=== PATIENT | female | born 1980 | race Caucasian/White ===

== ENCOUNTER 2021-08-27 08:57 | Inpatient (IN) ==
[2021-08-27] MEDS ORDERED: Ipratropium/Albuterol Neb 3 ML IH ONE (09:17)
[2021-08-27] MEDS ORDERED: 0.9 % Sodium Chloride 1,000 ML IVC ONE (09:17)
[2021-08-27 09:49] LABS: Basophils % 0.1 %; Hemoglobin 11.6 g/dL (11.5-15.4); Immature Granulocytes % 0.3 % (0-4); Mean Corpuscular Hemoglobin 27.8 pg (28.0-33.3); Red Blood Count 4.17 M/mcL (3.82-4.97)
[2021-08-27 09:51] LABS: Hematocrit 35.8 % (35.3-44.9); Immature Platelets 22.8 % (1.1-6.1); Lymphocytes # 0.8 K/mcL (0.6-4.6); Mean Corpuscular HGB Conc 32.4 g/dL (31.6-35.5); Mean Corpuscular Volume 85.9 fL (83.0-100.0); Mean Platelet Volume 13.2 fL (9.4-12.4); Monocytes # 0.4 K/mcL (0.0-1.3); Monocytes % 4.4 %; Neutrophils # 7.4 K/mcL (1.6-8.9); Platelet Count 101 K/mcL (140-400); Red Cell Distribution Width 14.4 % (11.5-14.5); Segmented Neutrophils % 86.2 %; White Blood Count 8.6 K/mcL (4.3-11.1)
[2021-08-27 10:10] LABS: ABG Base Excess 1 mEq/L (-2 to 3); ABG HCO3 25 mEq/L (21-27); ABG Oxygen Saturation 94 % (95-98); ABG PCO2 38 mmHg (35-45); ABG PH 7.43 pH Units (7.32-7.45); ABG PO2 70 mmHg (85-104); ABG TCO2 26 mEq/L (20-26)
[2021-08-27] MEDS ORDERED: Isovue-370 500 ML BOTTLE IVP ONE (10:14)
[2021-08-27 10:18] LABS: BUN/Creatinine Ratio 31 (6-26); Blood Urea Nitrogen 36 mg/dL (6-20); Calcium 8.9 mg/dL (8.6-10.3); Carbon Dioxide 26 mEq/L (23-29); Chloride 96 mEq/L (98-107); Glucose 182 mg/dL (70-105); Osmolality,Calculated 289 (280-300); Potassium 3.7 mEq/L (3.5-5.1); Sodium 133 mEq/L (136-145); Troponin I 0.07 ng/mL (< 0.04); eGFR For African Americans > 60 (> 60); eGFR For Non-African Americans 52 (> 60)
[2021-08-27] MEDS ORDERED: Ketorolac 15 MG/ML VIAL IVP ONE (10:42)
[2021-08-27] MEDS ORDERED: Naloxone 0.4 MG/ML INJ IVP PRN (11:39)
[2021-08-27] MEDS ORDERED: Azithromycin 500 MG in 0.9 % Sodium Chloride 250 ML IVPB SCH (12:00)
[2021-08-27 12:03] LABS: Alanine Aminotransferase 35 Units/L (7-52); Albumin 3.7 g/dL (3.5-5.7); Albumin/Globulin Ratio 1.1 (1.1-2.2); Alkaline Phosphatase 156 Units/L (34-104); Aspartate Amino Transferase 87 Units/L (13-39); Bilirubin,Direct 0.1 mg/dL (0.0-0.2); Bilirubin,Indirect 0.2 mg/dL (0.0-1.0); Bilirubin,Total 0.3 mg/dL (0.3-1.0); Globulin 3.5 g/dL (2.4-3.5); Total Protein 7.2 g/dL (6.4-8.9)
[2021-08-27] MEDS ORDERED: Remdesivir 200 MG in 0.9 % Sodium Chloride 100 ML IVPB ONE (15:00)
[2021-08-27 17:11] LABS: C-Reactive Protein > 300 mg/L (Less than 10)
[2021-08-27 17:49] LABS: Ferritin > 1500 ng/mL (10-120)
[2021-08-27] MEDS: atenoloL 25 MG TABLET PO SCH (19:53)
[2021-08-27] MEDS ORDERED: *HR* LORazepam 2 MG/ML VIAL IVP ONE (21:25)
[2021-08-28 02:07] LABS: Immature Granulocytes % 0.9 % (0-4); Lymphocytes % 14.8 %; Red Cell Distribution Width 14.4 % (11.5-14.5)
[2021-08-28 02:09] LABS: Basophils % 0.2 %; Hemoglobin 11.3 g/dL (11.5-15.4); Immature Platelets 19.4 % (1.1-6.1); Lymphocytes # 1.4 K/mcL (0.6-4.6); Mean Corpuscular HGB Conc 33.2 g/dL (31.6-35.5); Mean Corpuscular Hemoglobin 28.3 pg (28.0-33.3); Mean Platelet Volume 13.4 fL (9.4-12.4); Monocytes # 0.4 K/mcL (0.0-1.3); Monocytes % 4.2 %; Neutrophils # 7.4 K/mcL (1.6-8.9); Platelet Count 117 K/mcL (140-400); Segmented Neutrophils % 79.9 %; White Blood Count 9.3 K/mcL (4.3-11.1)
[2021-08-28 02:21] LABS: BUN/Creatinine Ratio 41 (6-26); Blood Urea Nitrogen 32 mg/dL (6-20); Calcium 8.6 mg/dL (8.6-10.3); Carbon Dioxide 22 mEq/L (23-29); Chloride 100 mEq/L (98-107); Glucose 185 mg/dL (70-105); Magnesium 2.1 mg/dL (1.6-2.6); Osmolality,Calculated 288 (280-300); Phosphorous 2.2 mg/dL (2.7-4.5); Potassium 3.7 mEq/L (3.5-5.1); Sodium 133 mEq/L (136-145); eGFR For African Americans > 60 (> 60); eGFR For Non-African Americans > 60 (> 60)
[2021-08-28 02:22] LABS: Albumin 3.4 g/dL (3.5-5.7); Bilirubin,Direct 0.1 mg/dL (0.0-0.2); Bilirubin,Indirect 0.2 mg/dL (0.0-1.0); Bilirubin,Total 0.3 mg/dL (0.3-1.0); Globulin 3.3 g/dL (2.4-3.5); Total Protein 6.7 g/dL (6.4-8.9)
[2021-08-28] MEDS ORDERED: *HR* Enoxaparin 40 MG/0.4 ML SYRINGE SQ SCH (06:00)
[2021-08-28] MEDS: *HR* OxyCODONE/APAP 5/325 TABLET PO PRN ×3 (08:55→23:57)
[2021-08-28] MEDS: atenoloL 25 MG TABLET PO SCH (08:55)
[2021-08-28] MEDS: Furosemide 20 MG/2 ML VIAL IVP SCH ×2 (08:56→20:14)
[2021-08-28] MEDS: Remdesivir 100 MG in 0.9 % Sodium Chloride 100 ML IVPB SCH (14:55)
[2021-08-28] MEDS: Ondansetron 4 MG/2 ML VIAL IVP PRN (16:20)
[2021-08-28] MEDS: *HR* Enoxaparin 40 MG/0.4 ML SYRINGE SQ SCH (16:29)
[2021-08-29 02:52] LABS: Red Cell Distribution Width 14.4 % (11.5-14.5)
[2021-08-29 02:54] LABS: Hematocrit 34.6 % (35.3-44.9); Hemoglobin 11.1 g/dL (11.5-15.4); Immature Platelets 21.2 % (1.1-6.1); Mean Corpuscular HGB Conc 32.1 g/dL (31.6-35.5); Mean Corpuscular Hemoglobin 27.6 pg (28.0-33.3); Mean Corpuscular Volume 86.1 fL (83.0-100.0); Mean Platelet Volume 13.6 fL (9.4-12.4); Red Blood Count 4.02 M/mcL (3.82-4.97); White Blood Count 12.2 K/mcL (4.3-11.1)
[2021-08-29 03:12] LABS: BUN/Creatinine Ratio 42 (6-26); Blood Urea Nitrogen 41 mg/dL (6-20); Calcium 8.4 mg/dL (8.6-10.3); Carbon Dioxide 23 mEq/L (23-29); Chloride 99 mEq/L (98-107); Glucose 215 mg/dL (70-105); Osmolality,Calculated 295 (280-300); Potassium 3.7 mEq/L (3.5-5.1); Sodium 134 mEq/L (136-145); eGFR For African Americans > 60 (> 60); eGFR For Non-African Americans > 60 (> 60)
[2021-08-29 03:13] LABS: Albumin 3.4 g/dL (3.5-5.7); Albumin/Globulin Ratio 1.1 (1.1-2.2); Bilirubin,Direct 0.1 mg/dL (0.0-0.2); Bilirubin,Indirect 0.3 mg/dL (0.0-1.0); Bilirubin,Total 0.4 mg/dL (0.3-1.0); Globulin 3.2 g/dL (2.4-3.5); Total Protein 6.6 g/dL (6.4-8.9)
[2021-08-29] MEDS: *HR* Enoxaparin 40 MG/0.4 ML SYRINGE SQ SCH ×2 (05:35→17:48)
[2021-08-29] MEDS: Cholecalciferol (D-3) 1,000 UNIT (25MCG) TABLET PO SCH (08:31)
[2021-08-29] MEDS: *HR* OxyCODONE/APAP 5/325 TABLET PO PRN ×3 (08:31→22:22)
[2021-08-29] MEDS: Furosemide 20 MG/2 ML VIAL IVP SCH ×2 (08:31→20:47)
[2021-08-29] MEDS ORDERED: atenoloL 25 MG TABLET PO SCH (09:00)
[2021-08-29] MEDS: Remdesivir 100 MG in 0.9 % Sodium Chloride 100 ML IVPB SCH (15:38)
[2021-08-29] MEDS ORDERED: *HR* LORazepam 2 MG/ML VIAL IVP ONE (19:58)
[2021-08-29] MEDS: Ondansetron 4 MG/2 ML VIAL IVP PRN (22:22)
[2021-08-30 02:42] LABS: Albumin 3.5 g/dL (3.5-5.7); Albumin/Globulin Ratio 1.2 (1.1-2.2); BUN/Creatinine Ratio 50 (6-26); Bilirubin,Direct 0.2 mg/dL (0.0-0.2); Bilirubin,Indirect 0.3 mg/dL (0.0-1.0); Bilirubin,Total 0.5 mg/dL (0.3-1.0); Blood Urea Nitrogen 55 mg/dL (6-20); Calcium 8.5 mg/dL (8.6-10.3); Carbon Dioxide 24 mEq/L (23-29); Chloride 97 mEq/L (98-107); Globulin 2.9 g/dL (2.4-3.5); Glucose 242 mg/dL (70-105); Osmolality,Calculated 299 (280-300); Potassium 3.7 mEq/L (3.5-5.1); Sodium 133 mEq/L (136-145); Total Protein 6.4 g/dL (6.4-8.9); eGFR For African Americans > 60 (> 60); eGFR For Non-African Americans 54 (> 60)
[2021-08-30 03:42] LABS: Hematocrit 33.5 % (35.3-44.9); Hemoglobin 11.2 g/dL (11.5-15.4); Mean Corpuscular HGB Conc 33.4 g/dL (31.6-35.5); Mean Corpuscular Hemoglobin 28.6 pg (28.0-33.3); Mean Corpuscular Volume 85.5 fL (83.0-100.0); Mean Platelet Volume 13.5 fL (9.4-12.4); Platelet Count 190 K/mcL (140-400); Red Blood Count 3.92 M/mcL (3.82-4.97); Red Cell Distribution Width 14.1 % (11.5-14.5); White Blood Count 14.6 K/mcL (4.3-11.1)
[2021-08-30] MEDS ORDERED: *HR* LORazepam 2 MG/ML VIAL IVP ONE (04:42)
[2021-08-30] MEDS: *HR* OxyCODONE/APAP 5/325 TABLET PO PRN ×3 (04:51→21:30)
[2021-08-30] MEDS: *HR* Enoxaparin 40 MG/0.4 ML SYRINGE SQ SCH ×2 (04:52→17:05)
[2021-08-30] MEDS: Ondansetron 4 MG/2 ML VIAL IVP PRN ×2 (07:52→17:05)
[2021-08-30] MEDS: Cholecalciferol (D-3) 1,000 UNIT (25MCG) TABLET PO SCH (07:52)
[2021-08-30] MEDS: Furosemide 20 MG/2 ML VIAL IVP SCH ×2 (07:52→21:30)
[2021-08-30] MEDS: Remdesivir 100 MG in 0.9 % Sodium Chloride 100 ML IVPB SCH (15:39)
[2021-08-31 03:01] LABS: Albumin 3.4 g/dL (3.5-5.7); Albumin/Globulin Ratio 1.1 (1.1-2.2); Bilirubin,Direct 0.1 mg/dL (0.0-0.2); Bilirubin,Indirect 0.6 mg/dL (0.0-1.0); Bilirubin,Total 0.7 mg/dL (0.3-1.0); Total Protein 6.4 g/dL (6.4-8.9)
[2021-08-31] MEDS: *HR* Enoxaparin 40 MG/0.4 ML SYRINGE SQ SCH ×2 (05:44→16:17)
[2021-08-31] MEDS: Cholecalciferol (D-3) 1,000 UNIT (25MCG) TABLET PO SCH (08:50)
[2021-08-31] MEDS: Furosemide 20 MG/2 ML VIAL IVP SCH ×2 (08:51→20:48)
[2021-08-31] MEDS: *HR* OxyCODONE/APAP 5/325 TABLET PO PRN ×3 (09:01→23:40)
[2021-08-31 09:24] LABS: BUN/Creatinine Ratio 49 (6-26); Blood Urea Nitrogen 57 mg/dL (6-20); Calcium 8.8 mg/dL (8.6-10.3); Carbon Dioxide 26 mEq/L (23-29); Chloride 96 mEq/L (98-107); Glucose 268 mg/dL (70-105); Osmolality,Calculated 303 (280-300); Potassium 3.9 mEq/L (3.5-5.1); Sodium 134 mEq/L (136-145); eGFR For African Americans > 60 (> 60); eGFR For Non-African Americans 51 (> 60)
[2021-08-31] MEDS: Remdesivir 100 MG in 0.9 % Sodium Chloride 100 ML IVPB SCH (15:13)
[2021-09-01 02:40] LABS: BUN/Creatinine Ratio 48 (6-26); Blood Urea Nitrogen 54 mg/dL (6-20); Calcium 8.7 mg/dL (8.6-10.3); Carbon Dioxide 26 mEq/L (23-29); Chloride 95 mEq/L (98-107); Glucose 315 mg/dL (70-105); Osmolality,Calculated 299 (280-300); Potassium 4.2 mEq/L (3.5-5.1); Sodium 131 mEq/L (136-145); eGFR For African Americans > 60 (> 60); eGFR For Non-African Americans 53 (> 60)
[2021-09-01 02:41] LABS: Albumin 3.3 g/dL (3.5-5.7); Albumin/Globulin Ratio 1.1 (1.1-2.2); Bilirubin,Direct 0.1 mg/dL (0.0-0.2); Bilirubin,Indirect 0.5 mg/dL (0.0-1.0); Bilirubin,Total 0.6 mg/dL (0.3-1.0); Total Protein 6.3 g/dL (6.4-8.9)
[2021-09-01 03:05] LABS: Hematocrit 36.2 % (35.3-44.9); Hemoglobin 11.8 g/dL (11.5-15.4); Mean Corpuscular HGB Conc 32.6 g/dL (31.6-35.5); Mean Corpuscular Hemoglobin 27.6 pg (28.0-33.3); Mean Corpuscular Volume 84.8 fL (83.0-100.0); Mean Platelet Volume 13.1 fL (9.4-12.4); Red Blood Count 4.27 M/mcL (3.82-4.97); Red Cell Distribution Width 13.3 % (11.5-14.5); White Blood Count 21.9 K/mcL (4.3-11.1)
[2021-09-01] MEDS: *HR* OxyCODONE/APAP 5/325 TABLET PO PRN (05:42)
[2021-09-01] MEDS: *HR* Enoxaparin 40 MG/0.4 ML SYRINGE SQ SCH ×2 (05:43→17:07)
[2021-09-01] MEDS: Ondansetron 4 MG/2 ML VIAL IVP PRN ×2 (06:30→18:21)
[2021-09-01] MEDS: Cholecalciferol (D-3) 1,000 UNIT (25MCG) TABLET PO SCH (08:25)
[2021-09-01] MEDS: Furosemide 20 MG/2 ML VIAL IVP SCH ×2 (08:25→21:15)
[2021-09-01] MEDS ORDERED: Morphine Sulfate 2 MG/ML SYRINGE IVP ONE (08:38)
[2021-09-01] MEDS: Morphine Sulfate 2 MG/ML SYRINGE IVP PRN ×3 (12:41→22:58)
[2021-09-01] MEDS ORDERED: *HR* LORazepam 2 MG/ML VIAL ONE (21:17)
[2021-09-01] MEDS: *HR* LORazepam 2 MG/ML VIAL IVP ONE ×2 (21:20→21:24)
[2021-09-02] MEDS: Morphine Sulfate 2 MG/ML SYRINGE IVP PRN ×4 (04:17→20:52)
[2021-09-02] MEDS: *HR* Enoxaparin 40 MG/0.4 ML SYRINGE SQ SCH ×2 (04:17→17:22)
[2021-09-02] MEDS: Cholecalciferol (D-3) 1,000 UNIT (25MCG) TABLET PO SCH (08:54)
[2021-09-02] MEDS: Ondansetron 4 MG/2 ML VIAL IVP PRN (08:54)
[2021-09-02] MEDS: Furosemide 20 MG/2 ML VIAL IVP SCH (08:55)
[2021-09-02 09:35] LABS: Red Cell Distribution Width 13.2 % (11.5-14.5)
[2021-09-02 09:37] LABS: Hematocrit 38.1 % (35.3-44.9); Hemoglobin 12.6 g/dL (11.5-15.4); Mean Corpuscular HGB Conc 33.1 g/dL (31.6-35.5); Mean Corpuscular Hemoglobin 27.8 pg (28.0-33.3); Mean Corpuscular Volume 83.9 fL (83.0-100.0); Mean Platelet Volume 12.4 fL (9.4-12.4); Platelet Count 160 K/mcL (140-400); Red Blood Count 4.54 M/mcL (3.82-4.97)
[2021-09-02 10:21] LABS: BUN/Creatinine Ratio 52 (6-26); Blood Urea Nitrogen 56 mg/dL (6-20); Calcium 8.9 mg/dL (8.6-10.3); Carbon Dioxide 24 mEq/L (23-29); Chloride 90 mEq/L (98-107); Glucose 297 mg/dL (70-105); Osmolality,Calculated 291 (280-300); Potassium 4.2 mEq/L (3.5-5.1); Sodium 127 mEq/L (136-145); eGFR For African Americans > 60 (> 60); eGFR For Non-African Americans 56 (> 60)
[2021-09-02] MEDS ORDERED: D5% in Water 1,000 ML IVC PRN (12:29)
[2021-09-02] MEDS ORDERED: Dextrose Gel 15 GM/37.5 ML TUBE PO PRN ×2 (12:29)
[2021-09-02] MEDS ORDERED: *HR* Dextrose 50 % in Water (Syg) 50 ML SYRINGE IVP PRN (12:29)
[2021-09-02] MEDS ORDERED: Insulin DETEMIR 100 UNIT/ML X5UNITS SUBQ SCH (12:30)
[2021-09-02] MEDS: Insulin LISPRO 300 UNITS/3 ML VIAL SUBQ SCH ×3 (13:15→20:53)
[2021-09-02] MEDS: Piperacillin/Tazobactam 3.375 GM in 0.9 % Sodium Chloride Mini Bag 100 ML IVPB SCH ×2 (15:49→23:40)
[2021-09-02] MEDS: Doxycycline 100 MG in 0.9 % Sodium Chloride Mini Bag 100 ML IVPB SCH (15:49)
[2021-09-02] MEDS ORDERED: Insulin LISPRO 300 UNITS/3 ML VIAL SUBQ ONE (16:20)
[2021-09-02] MEDS ORDERED: Ringers Solution, Lactated 500 ML IVC ONE ×3 (17:17→17:45)
[2021-09-02] MEDS ORDERED: Ringers Solution, Lactated 1,000 ML ONE (17:25)
[2021-09-02] MEDS: Insulin DETEMIR 100 UNIT/ML X5UNITS SUBQ SCH (20:56)
[2021-09-03] MEDS: Morphine Sulfate 2 MG/ML SYRINGE IVP PRN ×5 (02:01→22:16)
[2021-09-03] MEDS: Doxycycline 100 MG in 0.9 % Sodium Chloride Mini Bag 100 ML IVPB SCH ×2 (02:02→15:19)
[2021-09-03 03:02] LABS: Red Cell Distribution Width 13.2 % (11.5-14.5)
[2021-09-03 03:03] LABS: Hematocrit 34.9 % (35.3-44.9); Hemoglobin 12.1 g/dL (11.5-15.4); Mean Corpuscular HGB Conc 34.7 g/dL (31.6-35.5); Mean Corpuscular Volume 83.7 fL (83.0-100.0); Platelet Count 138 K/mcL (140-400); Red Blood Count 4.17 M/mcL (3.82-4.97)
[2021-09-03 03:10] LABS: White Blood Count 33.7 K/mcL (4.3-11.1)
[2021-09-03 03:26] LABS: BUN/Creatinine Ratio 48 (6-26); Blood Urea Nitrogen 45 mg/dL (6-20); Calcium 8.9 mg/dL (8.6-10.3); Carbon Dioxide 27 mEq/L (23-29); Chloride 93 mEq/L (98-107); Glucose 185 mg/dL (70-105); Osmolality,Calculated 284 (280-300); Sodium 129 mEq/L (136-145); eGFR For African Americans > 60 (> 60); eGFR For Non-African Americans > 60 (> 60)
[2021-09-03 06:07] LABS: Acinetobacter baumannii by PCR Not Detected (Not Detect); Candida albicans by PCR Not Detected (Not Detect); Candida glabrata by PCR Not Detected (Not Detect); Candida krusei by PCR Not Detected (Not Detect); Candida parapsilosis by PCR Not Detected (Not Detect); Candida tropicalis by PCR Not Detected (Not Detect); Enterobacter cloacae Cmplx PCR Not Detected (Not Detect); Enterobacteriaceae by PCR Not Detected (Not Detect); Enterococcus by PCR Not Detected (Not Detect); Escherichia coli by PCR Not Detected (Not Detect); Klebsiella oxytoca by PCR Not Detected (Not Detect); Klebsiella pneumoniae by PCR Not Detected (Not Detect); Proteus by PCR Not Detected (Not Detect); Pseudomonas aeruginosa by PCR Not Detected (Not Detect); Serratia marcescens by PCR Not Detected (Not Detect); Staphylococcus aureus by PCR Not Detected (Not Detect); Staphylococcus by PCR Not Detected (Not Detect); Streptococcus agalactiae(B)PCR Not Detected (Not Detect); Streptococcus pneumoniae PCR DETECTED (Not Detect); Streptococcus pyogenes (A) PCR Not Detected (Not Detect); mecA Methicillin-Resist Gene Not Detected (Not Detect); vanA/B Vancomycin-Resist Genes Not Detected (Not Detect)
[2021-09-03] MEDS: *HR* Enoxaparin 40 MG/0.4 ML SYRINGE SQ SCH ×2 (06:11→17:05)
[2021-09-03] MEDS: Cholecalciferol (D-3) 1,000 UNIT (25MCG) TABLET PO SCH (07:58)
[2021-09-03] MEDS: Piperacillin/Tazobactam 3.375 GM in 0.9 % Sodium Chloride Mini Bag 100 ML IVPB SCH ×2 (08:01→15:20)
[2021-09-03] MEDS: Insulin LISPRO 300 UNITS/3 ML VIAL SUBQ SCH ×4 (08:05→22:46)
[2021-09-03] MEDS: Insulin DETEMIR 100 UNIT/ML X5UNITS SUBQ SCH ×2 (10:54→22:20)
[2021-09-04] MEDS: Piperacillin/Tazobactam 3.375 GM in 0.9 % Sodium Chloride Mini Bag 100 ML IVPB SCH ×2 (00:40→07:31)
[2021-09-04] MEDS: Doxycycline 100 MG in 0.9 % Sodium Chloride Mini Bag 100 ML IVPB SCH (03:15)
[2021-09-04 03:18] LABS: Basophils # 0.1 K/mcL (0.0-0.2); Basophils % 0.3 %; Eosinophils # 0.1 K/mcL (0.0-0.6); Eosinophils % 0.4 %; Hemoglobin 11.3 g/dL (11.5-15.4); Immature Granulocytes % 2.5 % (0-4); Lymphocytes # 1.4 K/mcL (0.6-4.6); Lymphocytes % 5.5 %; Mean Corpuscular HGB Conc 33.2 g/dL (31.6-35.5); Mean Corpuscular Hemoglobin 28.1 pg (28.0-33.3); Mean Corpuscular Volume 84.6 fL (83.0-100.0); Mean Platelet Volume 12.8 fL (9.4-12.4); Monocytes # 0.7 K/mcL (0.0-1.3); Monocytes % 2.7 %; Neutrophils # 22.1 K/mcL (1.6-8.9); Platelet Count 125 K/mcL (140-400); Red Blood Count 4.02 M/mcL (3.82-4.97); Red Cell Distribution Width 13.2 % (11.5-14.5); Segmented Neutrophils % 88.6 %; White Blood Count 24.9 K/mcL (4.3-11.1)
[2021-09-04 03:34] LABS: BUN/Creatinine Ratio 47 (6-26); Blood Urea Nitrogen 34 mg/dL (6-20); C-Reactive Protein 16 mg/L (Less than 10); Calcium 8.7 mg/dL (8.6-10.3); Carbon Dioxide 28 mEq/L (23-29); Chloride 95 mEq/L (98-107); Glucose 149 mg/dL (70-105); Osmolality,Calculated 282 (280-300); Sodium 131 mEq/L (136-145); eGFR For African Americans > 60 (> 60); eGFR For Non-African Americans > 60 (> 60)
[2021-09-04] MEDS: Morphine Sulfate 2 MG/ML SYRINGE IVP PRN (05:14)
[2021-09-04] MEDS: *HR* Enoxaparin 40 MG/0.4 ML SYRINGE SQ SCH ×2 (05:15→17:56)
[2021-09-04] MEDS: Cholecalciferol (D-3) 1,000 UNIT (25MCG) TABLET PO SCH (07:30)
[2021-09-04] MEDS: Insulin DETEMIR 100 UNIT/ML X5UNITS SUBQ SCH ×2 (07:31→20:50)
[2021-09-04] MEDS: Insulin LISPRO 300 UNITS/3 ML VIAL SUBQ SCH ×4 (07:57→20:50)
[2021-09-04] MEDS: *HR* OxyCODONE/APAP 5/325 TABLET PO PRN ×3 (10:21→23:26)
[2021-09-04] MEDS: cefTRIAXone 2,000 MG in Water for inj. (sterile) 20 ML IVP SCH (10:21)
[2021-09-05 01:17] LABS: Lymphocytes % 6.5 %; Platelet Count 102 K/mcL (140-400)
[2021-09-05 01:19] LABS: Basophils # 0.1 K/mcL (0.0-0.2); Basophils % 0.3 %; Eosinophils # 0.1 K/mcL (0.0-0.6); Eosinophils % 0.3 %; Hematocrit 34.3 % (35.3-44.9); Hemoglobin 11.4 g/dL (11.5-15.4); Immature Granulocytes % 2.9 % (0-4); Immature Platelets 23.5 % (1.1-6.1); Lymphocytes # 1.5 K/mcL (0.6-4.6); Mean Corpuscular HGB Conc 33.2 g/dL (31.6-35.5); Mean Corpuscular Hemoglobin 28.1 pg (28.0-33.3); Mean Corpuscular Volume 84.5 fL (83.0-100.0); Mean Platelet Volume 13.3 fL (9.4-12.4); Monocytes # 1.1 K/mcL (0.0-1.3); Monocytes % 4.7 %; Red Blood Count 4.06 M/mcL (3.82-4.97); Red Cell Distribution Width 13.2 % (11.5-14.5); Segmented Neutrophils % 85.3 %; White Blood Count 22.8 K/mcL (4.3-11.1)
[2021-09-05 01:20] LABS: Neutrophils # 19.5 K/mcL (1.6-8.9)
[2021-09-05 01:37] LABS: BUN/Creatinine Ratio 49 (6-26); Blood Urea Nitrogen 32 mg/dL (6-20); Calcium 8.4 mg/dL (8.6-10.3); Carbon Dioxide 27 mEq/L (23-29); Chloride 94 mEq/L (98-107); Glucose 172 mg/dL (70-105); Osmolality,Calculated 279 (280-300); Potassium 3.9 mEq/L (3.5-5.1); Sodium 129 mEq/L (136-145); eGFR For African Americans > 60 (> 60); eGFR For Non-African Americans > 60 (> 60)
[2021-09-05] MEDS: *HR* Enoxaparin 40 MG/0.4 ML SYRINGE SQ SCH ×2 (05:51→15:49)
[2021-09-05] MEDS: Insulin LISPRO 300 UNITS/3 ML VIAL SUBQ SCH ×4 (07:53→20:24)
[2021-09-05] MEDS: cefTRIAXone 2,000 MG in Water for inj. (sterile) 20 ML IVP SCH (07:57)
[2021-09-05] MEDS: Insulin DETEMIR 100 UNIT/ML X5UNITS SUBQ SCH ×2 (07:58→20:12)
[2021-09-05] MEDS: Cholecalciferol (D-3) 1,000 UNIT (25MCG) TABLET PO SCH (07:59)
[2021-09-05] MEDS ORDERED: Saline Nasal Spray 44 ML BOTTLE NS PRN (10:20)
[2021-09-05] MEDS: *HR* OxyCODONE/APAP 5/325 TABLET PO PRN (14:09)
[2021-09-05] MEDS: Furosemide 20 MG/2 ML VIAL IVP SCH (15:49)
[2021-09-05] MEDS: Morphine Sulfate 2 MG/ML SYRINGE IVP PRN (20:11)
[2021-09-06 03:09] LABS: Basophils % 0.4 %; Eosinophils % 0.8 %; Hemoglobin 11.9 g/dL (11.5-15.4); Red Cell Distribution Width 13.3 % (11.5-14.5)
[2021-09-06 03:11] LABS: Basophils # 0.1 K/mcL (0.0-0.2); Eosinophils # 0.2 K/mcL (0.0-0.6); Hematocrit 35.9 % (35.3-44.9); Immature Granulocytes % 2.2 % (0-4); Immature Platelets 28.5 % (1.1-6.1); Lymphocytes # 1.7 K/mcL (0.6-4.6); Lymphocytes % 8.4 %; Mean Corpuscular HGB Conc 33.1 g/dL (31.6-35.5); Mean Corpuscular Hemoglobin 28.3 pg (28.0-33.3); Mean Corpuscular Volume 85.5 fL (83.0-100.0); Mean Platelet Volume 13.8 fL (9.4-12.4); Monocytes # 1.4 K/mcL (0.0-1.3); Monocytes % 6.9 %; Platelet Count 95 K/mcL (140-400); Segmented Neutrophils % 81.3 %; White Blood Count 19.8 K/mcL (4.3-11.1)
[2021-09-06 03:20] LABS: BUN/Creatinine Ratio 43 (6-26); Blood Urea Nitrogen 32 mg/dL (6-20); Calcium 8.6 mg/dL (8.6-10.3); Carbon Dioxide 28 mEq/L (23-29); Chloride 95 mEq/L (98-107); Glucose 157 mg/dL (70-105); Osmolality,Calculated 282 (280-300); Potassium 3.9 mEq/L (3.5-5.1); Sodium 131 mEq/L (136-145); eGFR For African Americans > 60 (> 60); eGFR For Non-African Americans > 60 (> 60)
[2021-09-06] MEDS: *HR* OxyCODONE/APAP 5/325 TABLET PO PRN ×2 (03:21→15:56)
[2021-09-06 03:42] LABS: Neutrophils # 16.1 K/mcL (1.6-8.9)
[2021-09-06 03:43] LABS: Large Platelets Present (Not Present); Platelet Estimate Decreased (Normal)
[2021-09-06] MEDS: *HR* Enoxaparin 40 MG/0.4 ML SYRINGE SQ SCH ×2 (05:56→17:32)
[2021-09-06 08:40] LABS: Bilirubin,Urine Negative (Negative); Blood,Urine Negative (Negative); Clarity,Urine Clear (Clear); Color,Urine Yellow (Yellow); Glucose,Urine (UA) Normal (Normal); Ketones,Urine Negative (Negative); Leukocyte Esterase,Urine Negative (Negative); Mucus,Urine Few per lpf (None-Few); Nitrite,Urine Negative (Negative); Protein,Urine 30 mg/dL (Neg-Trace); RBC,Urine 0-3 per hpf (0-3); Specific Gravity,Urine > 1.030 (1.010-1.025); Squamous Epithelial Cell,Urine Few per hpf (None-Few); Urobilinogen,Urine Normal (Normal); WBC,Urine 0-3 per hpf (0-3)
[2021-09-06] MEDS: Insulin LISPRO 300 UNITS/3 ML VIAL SUBQ SCH ×4 (09:37→21:12)
[2021-09-06] MEDS: Cholecalciferol (D-3) 1,000 UNIT (25MCG) TABLET PO SCH (09:47)
[2021-09-06] MEDS: Furosemide 20 MG/2 ML VIAL IVP SCH (09:47)
[2021-09-06] MEDS: cefTRIAXone 2,000 MG in Water for inj. (sterile) 20 ML IVP SCH (09:47)
[2021-09-06] MEDS: Insulin DETEMIR 100 UNIT/ML X5UNITS SUBQ SCH ×2 (09:50→21:12)
[2021-09-06] MEDS: Dexmedetomidine HCl 400 MCG/100 ML MLS IVC SCH (10:15)
[2021-09-07] MEDS: Dexmedetomidine HCl 400 MCG/100 ML MLS IVC SCH ×2 (02:53→20:48)
[2021-09-07] MEDS: *HR* Enoxaparin 40 MG/0.4 ML SYRINGE SQ SCH ×2 (05:43→19:11)
[2021-09-07] MEDS: cefTRIAXone 2,000 MG in Water for inj. (sterile) 20 ML IVP SCH (09:02)
[2021-09-07] MEDS: Insulin LISPRO 300 UNITS/3 ML VIAL SUBQ SCH ×4 (09:02→23:48)
[2021-09-07] MEDS: Furosemide 20 MG/2 ML VIAL IVP SCH (09:04)
[2021-09-07] MEDS: Cholecalciferol (D-3) 1,000 UNIT (25MCG) TABLET PO SCH (09:04)
[2021-09-07] MEDS: Insulin DETEMIR 100 UNIT/ML X5UNITS SUBQ SCH ×2 (09:22→20:48)
[2021-09-07 10:09] LABS: Basophils % 0.2 %; Lymphocytes % 9.2 %
[2021-09-07 10:10] LABS: Eosinophils # 0.4 K/mcL (0.0-0.6); Eosinophils % 1.9 %; Hematocrit 42.6 % (35.3-44.9); Immature Granulocytes % 1.6 % (0-4); Immature Platelets 30.1 % (1.1-6.1); Lymphocytes # 1.8 K/mcL (0.6-4.6); Mean Corpuscular HGB Conc 32.9 g/dL (31.6-35.5); Mean Corpuscular Hemoglobin 28.3 pg (28.0-33.3); Mean Corpuscular Volume 86.2 fL (83.0-100.0); Mean Platelet Volume 13.8 fL (9.4-12.4); Monocytes % 5.3 %; Neutrophils # 15.7 K/mcL (1.6-8.9); Red Blood Count 4.94 M/mcL (3.82-4.97); Red Cell Distribution Width 13.7 % (11.5-14.5); Segmented Neutrophils % 81.8 %; White Blood Count 19.2 K/mcL (4.3-11.1)
[2021-09-07 10:19] LABS: Platelet Count 82 K/mcL (140-400)
[2021-09-07 10:26] LABS: BUN/Creatinine Ratio 52 (6-26); Blood Urea Nitrogen 36 mg/dL (6-20); C-Reactive Protein 6 mg/L (Less than 10); Calcium 9.4 mg/dL (8.6-10.3); Carbon Dioxide 28 mEq/L (23-29); Chloride 95 mEq/L (98-107); Glucose 173 mg/dL (70-105); Osmolality,Calculated 288 (280-300); Potassium 4.2 mEq/L (3.5-5.1); Sodium 133 mEq/L (136-145); eGFR For African Americans > 60 (> 60); eGFR For Non-African Americans > 60 (> 60)
[2021-09-07] MEDS: *HR* OxyCODONE/APAP 5/325 TABLET PO PRN (11:08)
[2021-09-07] MEDS ORDERED: Isovue-370 500 ML BOTTLE IVP ONE (13:25)
[2021-09-07] MEDS: Morphine Sulfate 2 MG/ML SYRINGE IVP PRN (20:44)
[2021-09-08] MEDS ORDERED: *HR* Heparin 5,000 UNIT/ML VIAL IVP PRN ×2 (01:33)
[2021-09-08] MEDS: Dexmedetomidine HCl 400 MCG/100 ML MLS IVC SCH ×5 (01:53→22:41)
[2021-09-08] MEDS: Heparin 25,000UNIT/250ML 1/2NS 25,000 UNIT/250 ML IV.SOLN IVC SCH ×2 (01:55→20:31)
[2021-09-08] MEDS: Morphine Sulfate 2 MG/ML SYRINGE IVP PRN (05:14)
[2021-09-08 06:01] LABS: Basophils % 0.2 %; Eosinophils % 1.5 %; Hemoglobin 12.6 g/dL (11.5-15.4)
[2021-09-08 06:02] LABS: Basophils # 0.1 K/mcL (0.0-0.2); Eosinophils # 0.4 K/mcL (0.0-0.6); Hematocrit 37.7 % (35.3-44.9); Immature Granulocytes % 1.4 % (0-4); Immature Platelets 32.1 % (1.1-6.1); Lymphocytes % 7.9 %; Mean Corpuscular HGB Conc 33.4 g/dL (31.6-35.5); Mean Corpuscular Hemoglobin 28.3 pg (28.0-33.3); Mean Corpuscular Volume 84.7 fL (83.0-100.0); Monocytes # 1.4 K/mcL (0.0-1.3); Monocytes % 5.7 %; Red Blood Count 4.45 M/mcL (3.82-4.97); Red Cell Distribution Width 13.7 % (11.5-14.5); Segmented Neutrophils % 83.3 %; White Blood Count 25.2 K/mcL (4.3-11.1)
[2021-09-08 06:03] LABS: Platelet Count 82 K/mcL (140-400)
[2021-09-08 06:08] LABS: Heparin anti-factor XA UFH 0.78 IU/mL (0.30-0.70)
[2021-09-08 06:09] LABS: INR 1.1; Prothrombin Time 11.9 Seconds (9.4-12.1)
[2021-09-08 06:21] LABS: BUN/Creatinine Ratio 51 (6-26); Blood Urea Nitrogen 36 mg/dL (6-20); Calcium 9.1 mg/dL (8.6-10.3); Carbon Dioxide 27 mEq/L (23-29); Chloride 97 mEq/L (98-107); Glucose 168 mg/dL (70-105); Osmolality,Calculated 286 (280-300); Potassium 4.4 mEq/L (3.5-5.1); Sodium 132 mEq/L (136-145); eGFR For African Americans > 60 (> 60); eGFR For Non-African Americans > 60 (> 60)
[2021-09-08] MEDS ORDERED: *HR* LORazepam 2 MG/ML VIAL ONE (07:51)
[2021-09-08] MEDS ORDERED: *HR* LORazepam 2 MG/ML VIAL IVP STA (07:54)
[2021-09-08] MEDS: Insulin LISPRO 300 UNITS/3 ML VIAL SUBQ SCH ×4 (08:45→20:32)
[2021-09-08] MEDS: Insulin DETEMIR 100 UNIT/ML X5UNITS SUBQ SCH ×2 (09:50→20:34)
[2021-09-08] MEDS: cefTRIAXone 2,000 MG in Water for inj. (sterile) 20 ML IVP SCH (09:51)
[2021-09-08] MEDS: Furosemide 20 MG/2 ML VIAL IVP SCH (09:52)
[2021-09-08] MEDS: Cholecalciferol (D-3) 1,000 UNIT (25MCG) TABLET PO SCH (10:29)
[2021-09-08] MEDS: *HR* OxyCODONE/APAP 5/325 TABLET PO PRN ×2 (14:39→22:28)
[2021-09-09 00:33] LABS: Basophils % 0.2 %; Eosinophils # 0.2 K/mcL (0.0-0.6); Eosinophils % 0.9 %; Hematocrit 37.5 % (35.3-44.9); Hemoglobin 12.3 g/dL (11.5-15.4); Immature Granulocytes % 1.1 % (0-4); Immature Platelets 32.5 % (1.1-6.1); Lymphocytes # 1.5 K/mcL (0.6-4.6); Lymphocytes % 7.6 %; Mean Corpuscular HGB Conc 32.8 g/dL (31.6-35.5); Mean Corpuscular Hemoglobin 27.9 pg (28.0-33.3); Mean Platelet Volume 14.2 fL (9.4-12.4); Monocytes # 0.9 K/mcL (0.0-1.3); Monocytes % 4.6 %; Neutrophils # 16.8 K/mcL (1.6-8.9); Red Blood Count 4.41 M/mcL (3.82-4.97); Red Cell Distribution Width 13.9 % (11.5-14.5); Segmented Neutrophils % 85.6 %; White Blood Count 19.6 K/mcL (4.3-11.1)
[2021-09-09 00:34] LABS: VBG Ionized Calcium 1.11 mmol/L (1.15-1.35)
[2021-09-09 00:36] LABS: Platelet Count 77 K/mcL (140-400)
[2021-09-09 00:48] LABS: Albumin 3.3 g/dL (3.5-5.7); Albumin/Globulin Ratio 1.1 (1.1-2.2); Bilirubin,Direct 0.1 mg/dL (0.0-0.2); Bilirubin,Indirect 0.6 mg/dL (0.0-1.0); Bilirubin,Total 0.7 mg/dL (0.3-1.0); Globulin 2.9 g/dL (2.4-3.5); Magnesium 2.2 mg/dL (1.6-2.6); Phosphorous 4.6 mg/dL (2.7-4.5); Total Protein 6.2 g/dL (6.4-8.9)
[2021-09-09 00:49] LABS: BUN/Creatinine Ratio 57 (6-26); Blood Urea Nitrogen 34 mg/dL (6-20); Calcium 9.1 mg/dL (8.6-10.3); Carbon Dioxide 28 mEq/L (23-29); Chloride 99 mEq/L (98-107); Glucose 101 mg/dL (70-105); Osmolality,Calculated 286 (280-300); Potassium 4.2 mEq/L (3.5-5.1); Sodium 134 mEq/L (136-145); eGFR For African Americans > 60 (> 60); eGFR For Non-African Americans > 60 (> 60)
[2021-09-09] MEDS: *HR* OxyCODONE/APAP 5/325 TABLET PO PRN ×5 (03:32→23:57)
[2021-09-09] MEDS ORDERED: *HR* LORazepam 2 MG/ML VIAL ONE (04:16)
[2021-09-09] MEDS ORDERED: *HR* LORazepam 2 MG/ML VIAL IVP ONE ×3 (04:17→10:20)
[2021-09-09] MEDS: Heparin 25,000UNIT/250ML 1/2NS 25,000 UNIT/250 ML IV.SOLN IVC SCH (04:31)
[2021-09-09] MEDS: Dexmedetomidine HCl 400 MCG/100 ML MLS IVC SCH ×4 (05:30→23:06)
[2021-09-09] MEDS: Cholecalciferol (D-3) 1,000 UNIT (25MCG) TABLET PO SCH (07:41)
[2021-09-09] MEDS: Furosemide 20 MG/2 ML VIAL IVP SCH (07:41)
[2021-09-09] MEDS: Insulin LISPRO 300 UNITS/3 ML VIAL SUBQ SCH ×3 (07:43→16:45)
[2021-09-09] MEDS ORDERED: Azithromycin 500 MG in 0.9 % Sodium Chloride 250 ML IVPB SCH (08:00)
[2021-09-09] MEDS: Piperacillin/Tazobactam 3.375 GM in 0.9 % Sodium Chloride Mini Bag 100 ML IVPB SCH ×3 (08:36→23:57)
[2021-09-09] MEDS ORDERED: Lidocaine -MPF 1% 5 ML AMPUL INFILT ONE (09:31)
[2021-09-09] MEDS: Insulin DETEMIR 100 UNIT/ML X5UNITS SUBQ SCH ×2 (09:40→20:40)
[2021-09-09 10:52] LABS: Mean Corpuscular HGB Conc 33.2 g/dL (31.6-35.5)
[2021-09-09 10:54] LABS: Hematocrit 39.1 % (35.3-44.9); Immature Platelets 34.5 % (1.1-6.1); Mean Corpuscular Hemoglobin 28.6 pg (28.0-33.3); Mean Corpuscular Volume 85.9 fL (83.0-100.0); Mean Platelet Volume 13.9 fL (9.4-12.4); Platelet Count 74 K/mcL (140-400); Red Blood Count 4.55 M/mcL (3.82-4.97); White Blood Count 27.3 K/mcL (4.3-11.1)
[2021-09-09 11:11] LABS: BUN/Creatinine Ratio 50 (6-26); Blood Urea Nitrogen 40 mg/dL (6-20); Calcium 8.8 mg/dL (8.6-10.3); Carbon Dioxide 27 mEq/L (23-29); Chloride 97 mEq/L (98-107); Glucose 161 mg/dL (70-105); Osmolality,Calculated 289 (280-300); Potassium 4.4 mEq/L (3.5-5.1); Sodium 133 mEq/L (136-145); eGFR For African Americans > 60 (> 60); eGFR For Non-African Americans > 60 (> 60)
[2021-09-09 11:18] LABS: Lymphocytes # 1.6 K/mcL (0.6-4.6); Monocytes # 0.6 K/mcL (0.0-1.3); Neutrophils # 25.1 K/mcL (1.6-8.9)
[2021-09-09 11:19] LABS: Anisocytosis 1+ (Not Present); Platelet Estimate Decreased (Normal); Reactive Lymphocytes Present (Not Present)
[2021-09-09 12:14] LABS: Lactate Dehydrogenase 740 Units/L (140-271); Total Protein 5.9 g/dL (6.4-8.9)
[2021-09-09] MEDS: *HR* LORazepam 2 MG/ML VIAL IVP PRN ×2 (15:24→20:41)
[2021-09-09 16:48] LABS: RBC,Pleural Fluid 10000 RBC/mcL
[2021-09-09 17:00] LABS: Glucose,Pleural Fluid 116 mg/dL (No Ref Range); LDH,Pleural Fluid > 1200 Units/L (No Ref Range); Total Protein,Pleural Fluid 3.8 g/dL
[2021-09-09 18:51] LABS: Appearance of Pleural Fl Cloudy (Clear)
[2021-09-09 18:53] LABS: Basophils,Pleural Fluid 0 %; Eosinophils,Pleural Fluid 0 %
[2021-09-10] MEDS: *HR* LORazepam 2 MG/ML VIAL IVP PRN (00:29)
[2021-09-10] MEDS ORDERED: Morphine Sulfate 2 MG/ML SYRINGE IVP PRN (00:36)
[2021-09-10] MEDS: FentaNYL (PF) 1,000 MCG/100 ML IV.SOLN IVC SCH ×4 (01:25→20:19)
[2021-09-10] MEDS: Midazolam HCl 50 MG/100 ML IV.SOLN IVC SCH ×2 (01:25→10:45)
[2021-09-10] MEDS: Norepinephrine 4 MG/254 ML IV.SOLN IVC SCH ×3 (01:27→19:38)
[2021-09-10] MEDS: Cisatracurium 200 MG in 0.9 % Sodium Chloride 180 ML IVC SCH ×5 (01:27→21:21)
[2021-09-10] MEDS ORDERED: Argatroban 250 MG in 0.9 % Sodium Chloride 250 ML IVC SCH (01:45)
[2021-09-10 01:53] LABS: VBG Ionized Calcium 1.11 mmol/L (1.15-1.35)
[2021-09-10 01:58] LABS: Heparin anti-factor XA UFH 0.05 IU/mL (0.30-0.70)
[2021-09-10 02:01] LABS: Activated Partial Thrombo Time 25.8 Seconds (26.0-36.0)
[2021-09-10 02:08] LABS: ABG Base Excess -19 mEq/L (-2 to 3); ABG HCO3 15 mEq/L (21-27); ABG Oxygen Saturation 82 % (95-98); ABG PCO2 73 mmHg (35-45); ABG PH 6.92 pH Units (7.32-7.45); ABG PO2 77 mmHg (85-104); ABG TCO2 17 mEq/L (20-26); Blood Gas VT 400 cc
[2021-09-10] MEDS ORDERED: Furosemide 20 MG/2 ML VIAL IVP ONE (02:27)
[2021-09-10 02:52] LABS: Hematocrit 35.3 % (35.3-44.9); Mean Corpuscular HGB Conc 30.9 g/dL (31.6-35.5); Mean Corpuscular Hemoglobin 28.6 pg (28.0-33.3); Mean Corpuscular Volume 92.7 fL (83.0-100.0); Mean Platelet Volume 11.6 fL (9.4-12.4); Red Blood Count 3.81 M/mcL (3.82-4.97); Red Cell Distribution Width 14.5 % (11.5-14.5)
[2021-09-10 02:55] LABS: Hemoglobin 10.9 g/dL (11.5-15.4); Platelet Count 92 K/mcL (140-400)
[2021-09-10 02:56] LABS: White Blood Count 67.2 K/mcL (4.3-11.1)
[2021-09-10] MEDS ORDERED: Calcium Gluconate 1gm/50mL 1 GM/50 ML BAG IVPB ONE ×2 (02:56→02:57)
[2021-09-10 03:09] LABS: Alanine Aminotransferase 272 Units/L (7-52); Albumin 2.6 g/dL (3.5-5.7); Albumin/Globulin Ratio 1.2 (1.1-2.2); Alkaline Phosphatase 295 Units/L (34-104); Aspartate Amino Transferase 311 Units/L (13-39); BUN/Creatinine Ratio 43 (6-26); Bilirubin,Direct 0.6 mg/dL (0.0-0.2); Bilirubin,Indirect 0.5 mg/dL (0.0-1.0); Bilirubin,Total 1.1 mg/dL (0.3-1.0); Blood Urea Nitrogen 46 mg/dL (6-20); Carbon Dioxide 22 mEq/L (23-29); Chloride 94 mEq/L (98-107); Globulin 2.2 g/dL (2.4-3.5); Glucose 411 mg/dL (70-105); Magnesium 2.9 mg/dL (1.6-2.6); Osmolality,Calculated 309 (280-300); Phosphorous 9.9 mg/dL (2.7-4.5); Potassium 4.2 mEq/L (3.5-5.1); Sodium 135 mEq/L (136-145); Total Protein 4.8 g/dL (6.4-8.9); eGFR For African Americans > 60 (> 60); eGFR For Non-African Americans 56 (> 60)
[2021-09-10] MEDS ORDERED: *HR* Metoprolol 5 MG/5 ML VIAL IVP ONE ×2 (03:13→03:15)
[2021-09-10 03:22] LABS: Anisocytosis 1+ (Not Present); Lymphocytes # 1.3 K/mcL (0.6-4.6); Neutrophils # 59.1 K/mcL (1.6-8.9)
[2021-09-10] MEDS: Insulin LISPRO 300 UNITS/3 ML VIAL SUBQ SCH ×4 (03:22→18:39)
[2021-09-10 03:23] LABS: Platelet Estimate Slight Decrease (Normal)
[2021-09-10] MEDS ORDERED: Amiodarone Premix 360 MG/200 ML BAG IVC ONE (07:22)
[2021-09-10] MEDS: Amiodarone Premix 360 MG/200 ML BAG IVC SCH ×2 (07:30→19:29)
[2021-09-10] MEDS: Piperacillin/Tazobactam 3.375 GM in 0.9 % Sodium Chloride Mini Bag 100 ML IVPB SCH ×2 (08:25→16:14)
[2021-09-10] MEDS: Furosemide 20 MG/2 ML VIAL IVP SCH (08:26)
[2021-09-10] MEDS: Cholecalciferol (D-3) 1,000 UNIT (25MCG) TABLET PO SCH (08:26)
[2021-09-10 08:58] LABS: ABG Base Excess -7 mEq/L (-2 to 3); ABG HCO3 25 mEq/L (21-27); ABG Oxygen Saturation 55 % (95-98); ABG PCO2 80 mmHg (35-45); ABG PO2 41 mmHg (85-104); ABG TCO2 27 mEq/L (20-26); Blood Gas Modality ASSIST CONTROL; Blood Gas VT 350 cc
[2021-09-10 09:08] LABS: Red Cell Distribution Width 14.6 % (11.5-14.5)
[2021-09-10 09:10] LABS: Hematocrit 35.4 % (35.3-44.9); Hemoglobin 11.3 g/dL (11.5-15.4); Immature Platelets 40.3 % (1.1-6.1); Mean Corpuscular HGB Conc 31.9 g/dL (31.6-35.5); Mean Corpuscular Hemoglobin 30.4 pg (28.0-33.3); Mean Corpuscular Volume 95.2 fL (83.0-100.0); Mean Platelet Volume 13.1 fL (9.4-12.4); Platelet Count 76 K/mcL (140-400); Red Blood Count 3.72 M/mcL (3.82-4.97)
[2021-09-10 09:12] LABS: White Blood Count 52.8 K/mcL (4.3-11.1)
[2021-09-10] MEDS: Phenylephrine 50 MG in 0.9 % Sodium Chloride 250 ML IVC SCH ×3 (09:27→22:15)
[2021-09-10] MEDS: Insulin DETEMIR 100 UNIT/ML X5UNITS SUBQ SCH ×2 (09:30→20:51)
[2021-09-10 09:45] LABS: Albumin 2.4 g/dL (3.5-5.7); Albumin/Globulin Ratio 1.5 (1.1-2.2); Bilirubin,Total 0.4 mg/dL (0.3-1.0); Calcium 6.2 mg/dL (8.6-10.3); Globulin 1.6 g/dL (2.4-3.5); Potassium 4.3 mEq/L (3.5-5.1)
[2021-09-10 09:52] LABS: Lymphocytes # 1.1 K/mcL (0.6-4.6); Neutrophils # 50.7 K/mcL (1.6-8.9); Platelet Estimate Decreased (Normal); Smudge Cells Present (Not Present)
[2021-09-10 10:06] LABS: Bacteria,Urine Few per hpf (None-Few); Bilirubin,Urine Negative (Negative); Blood,Urine Large (Negative); Clarity,Urine Ex.Turbid (Clear); Color,Urine Yellow (Yellow); Glucose,Urine (UA) Normal (Normal); Ketones,Urine Negative (Negative); Leukocyte Esterase,Urine Negative (Negative); Mucus,Urine Few per lpf (None-Few); Nitrite,Urine Negative (Negative); PH,Urine 5.5 pH Units (5.0-8.0); Protein,Urine 100 mg/dL (Neg-Trace); RBC,Urine TNTC per hpf (0-3); Specific Gravity,Urine > 1.030 (1.010-1.025); Uric Acid Crystals,Urine Present per hpf; Urobilinogen,Urine Normal (Normal)
[2021-09-10] MEDS ORDERED: Acetaminophen IV 1,000 MG/100 ML BAG IVPB ONE ×2 (11:00→18:39)
[2021-09-10] MEDS ORDERED: *HR* Fondaparinux 7.5 MG/0.6 ML SYRINGE SQ SCH (18:00)
[2021-09-10] MEDS ORDERED: *HR* Fondaparinux 2.5 MG/0.5 ML SYRINGE SQ SCH (18:00)
[2021-09-11] MEDS: Insulin LISPRO 300 UNITS/3 ML VIAL SUBQ SCH ×4 (00:21→18:56)
[2021-09-11] MEDS: Piperacillin/Tazobactam 3.375 GM in 0.9 % Sodium Chloride Mini Bag 100 ML IVPB SCH ×3 (00:22→16:09)
[2021-09-11] MEDS: Norepinephrine 4 MG/254 ML IV.SOLN IVC SCH ×6 (01:42→16:01)
[2021-09-11] MEDS: Cisatracurium 200 MG in 0.9 % Sodium Chloride 180 ML IVC SCH ×4 (01:54→16:12)
[2021-09-11] MEDS: Phenylephrine 50 MG in 0.9 % Sodium Chloride 250 ML IVC SCH ×4 (02:53→15:52)
[2021-09-11] MEDS: FentaNYL (PF) 1,000 MCG/100 ML IV.SOLN IVC SCH ×2 (03:00→10:39)
[2021-09-11] MEDS: Midazolam HCl 50 MG/100 ML IV.SOLN IVC SCH ×2 (03:40→13:40)
[2021-09-11 04:40] LABS: ABG Base Excess -10 mEq/L (-2 to 3); ABG HCO3 21 mEq/L (21-27); ABG Oxygen Saturation 86 % (95-98); ABG PCO2 65 mmHg (35-45); ABG PH 7.11 pH Units (7.32-7.45); ABG PO2 70 mmHg (85-104); ABG TCO2 23 mEq/L (20-26); Blood Gas VT 350 cc
[2021-09-11 04:51] LABS: Nucleated Red Blood Cells 0.2 /100 WBC (0)
[2021-09-11 04:54] LABS: Hematocrit 31.5 % (35.3-44.9); Hemoglobin 9.7 g/dL (11.5-15.4); Immature Platelets 41.4 % (1.1-6.1); Mean Corpuscular HGB Conc 30.8 g/dL (31.6-35.5); Mean Corpuscular Hemoglobin 29.4 pg (28.0-33.3); Mean Corpuscular Volume 95.5 fL (83.0-100.0); Red Cell Distribution Width 15.2 % (11.5-14.5)
[2021-09-11 04:56] LABS: Platelet Count 51 K/mcL (140-400)
[2021-09-11 04:56] LABS: VBG Ionized Calcium 0.83 mmol/L (1.15-1.35)
[2021-09-11 04:58] LABS: White Blood Count 37.8 K/mcL (4.3-11.1)
[2021-09-11 05:14] LABS: Albumin 1.8 g/dL (3.5-5.7); Albumin/Globulin Ratio 1.2 (1.1-2.2); Bilirubin,Direct 0.3 mg/dL (0.0-0.2); Bilirubin,Indirect 0.2 mg/dL (0.0-1.0); Bilirubin,Total 0.5 mg/dL (0.3-1.0); Globulin 1.5 g/dL (2.4-3.5); Magnesium 2.2 mg/dL (1.6-2.6); Phosphorous 6.6 mg/dL (2.7-4.5); Total Protein 3.3 g/dL (6.4-8.9)
[2021-09-11 05:42] LABS: Calcium 5.4 mg/dL (8.6-10.3); Monocytes # 2.3 K/mcL (0.0-1.3); Neutrophils # 32.5 K/mcL (1.6-8.9); Platelet Estimate Decreased (Normal); Potassium 4.3 mEq/L (3.5-5.1)
[2021-09-11] MEDS: Calcium Gluconate 1gm/50mL 1 GM/50 ML BAG IVPB PRN ×2 (06:22→07:22)
[2021-09-11] MEDS: Cholecalciferol (D-3) 1,000 UNIT (25MCG) TABLET PO SCH (07:58)
[2021-09-11] MEDS: Insulin DETEMIR 100 UNIT/ML X5UNITS SUBQ SCH (07:59)
[2021-09-11] MEDS: Furosemide 20 MG/2 ML VIAL IVP SCH (07:59)
[2021-09-11] MEDS: Amiodarone Premix 360 MG/200 ML BAG IVC SCH (08:11)
[2021-09-11] MEDS ORDERED: Bumetanide 12 MG in 0.9 % Sodium Chloride 48 ML IVC SCH (09:00)
[2021-09-11] MEDS ORDERED: Bumetanide 1 MG/4 ML VIAL IVP ONE (09:30)
[2021-09-11] MEDS ORDERED: Vasopressin 40 UNIT in D5% in Water 100 ML IVC SCH (10:00)
[2021-09-11] MEDS ORDERED: 0.9 % Sodium Chloride 500 ML ONE (10:47)
[2021-09-11] MEDS ORDERED: Calcium Chloride 2,000 MG in 0.9 % Sodium Chloride 100 ML IVPB ONE (11:00)
[2021-09-11] MEDS ORDERED: EPINEPHrine 5 MG in D5% in Water 250 ML IVC SCH (11:45)
[2021-09-11] MEDS ORDERED: Perflutren Lipid Microsphere 1.3 ML in 0.9 % Sodium Chloride 8.7 ML IVP PRN (13:07)
[2021-09-11] MEDS ORDERED: Argatroban 250 MG in 0.9 % Sodium Chloride 250 ML IVC SCH (18:00)
[2021-09-11 18:24] VITALS: BP 35/28; PULSE 111; TEMP 97.7; O2SAT 96
[2021-09-11] MEDS: Heparin 25,000UNIT/250ML 1/2NS 25,000 UNIT/250 ML IV.SOLN IVC SCH (18:57)
== END 2021-09-11 18:43 | disposition expired | DRG 208 ==
LOC: EMEROOARM 08:57 → 2ANU 08:57 → SUATTDRO 11:55 → 2ANU 13:31 → 2NNU 09-02 18:02 → ICNU 09-08 10:27
PROVIDERS: ADMIT Student in an Organized Health Care Education/Training Program; ATTEND Internal Medicine